=== PATIENT | male | born 1965 | race Caucasian/White ===

== ENCOUNTER 2019-07-20 11:18 | Observation (INO) | payer OTHER ==
[~2019-07-20] VITALS: Ht 185.4 cm; Wt 101.8 kg
[~2019-07-20 11:18] MED LIST: ADRENACLIC0.15 MG/0. IM; NORCO 7.5-3251 EACH PO; NORVASC5 MG PO; ONDANSETRON HCL4 M2 PO; PHENERGAN50 MG RC; PROMETHEGAN50 MG RECTAL
[2019-07-20 11:27] VITALS: BP 159/86
[2019-07-20] MEDS ORDERED: LIPITOR10 MG PO (11:33)
[2019-07-20 12:03] LABS: ABSOLUTE BASOPHILS 0.1 thou/uL (0.0-0.2); ABSOLUTE EOSINOPHILS 0.1 thou/uL (0.0-0.7); ABSOLUTE LYMPHOCYTES 1.4 thou/uL (0.8-5.3); ABSOLUTE MONOCYTES 0.5 thou/uL (0.0-1.2); ABSOLUTE NEUTROPHILS 4.9 thou/uL (1.6-8.1); EOSINOPHILS 0.8 %; HEMOGLOBIN 15.9 gm/dL (14.0-18.0); MCH 29.6 pg (26.0-34.0); MCHC 34.5 g/dL (28.0-37.0); MCV 85.9 fL (80.0-100.0); MONOCYTES 6.7 %; MPV 7.4 fl. (7.2-11.1); NUCLEATED RBCS 0 /100WBC; PLATELET COUNT* 212 thou/uL (150-400); POLYS 71.5 %; RBC 5.35 mil/uL (4.50-6.00); RDW-CV 13.2 % (10.5-14.5); WBC 6.9 thou/uL (4.0-11.0)
[2019-07-20 12:14] LABS: APTT 23.3 Seconds (25.0-31.3); INR 1.1; PROTIME 11.1 Seconds (9.20-11.50)
[2019-07-20 12:17] LABS: CALCIUM 8.8 mg/dL (8.5-10.1); POTASSIUM 3.8 mmol/L (3.5-5.1)
[2019-07-20 12:22] LABS: ALBUMIN 3.9 g/dL (3.4-5.0); TOTAL PROTEIN 7.8 g/dL (6.4-8.2)
[2019-07-20 13:02] LABS: URINE BILIRUBIN NEGATIVE (Negative); URINE BLOOD NEGATIVE (Negative); URINE CLARITY CLEAR; URINE COLOR YELLOW; URINE GLUCOSE-RANDOM 1+ (Negative); URINE KETONES NEGATIVE (Negative); URINE LEUKOCYTES-REFLEX NEGATIVE (Negative); URINE NITRITE-REFLEX NEGATIVE (Negative); URINE PROTEIN NEGATIVE (Negative); URINE SPECIFIC GRAVITY 1.015 (1.005-1.030); URINE UROBILINOGEN 0.2 E.U./dl (0.2-1.0)
--- NOTE | 2019-07-20 13:27 | NUR ---
ANGELITO Logan NOTIFIED UPON PT RETURN FROM CT.PT CONNECTED TO O2 AND PULSE OX, AND HEART MONITOR HE WAS PRIOR TO CT
[2019-07-20 14:00] VITALS: BP 134/78
[2019-07-20 14:13] LABS: INFLUENZA A ANTIGEN Negative (Negative); INFLUENZA B ANTIGEN Negative (Negative)
--- NOTE | 2019-07-20 15:27 | 2DMMODE ---
[place] [address] 2 D/M-MODE ECHOCARDIOGRAM Name: TIERNEY MAY Room: [address] MNehaRNeha#: [id number] Admission: 07/20/19 Attend Phys: Catracho Thomas, Discharge: Date of : 63 Date of Service: 07/20/19 1525 Report #: [id number] THIS REPORT FOR: cc: Manuel Turner MD, Anthony MD Blick,Sincere Saucedo MD [facility] ~ APPROVED REPORT Study performed: 07/20/2019 14:29:37 EXAM: Limited 2D, Doppler, and color-flow Echocardiogram Patient Location: In-Patient Room #: ER Status: routine BSA: 2.27 HR: 94 bpm BP: 118/68 mmHg Rhythm: NSR Other Information Study Quality: Good Indications Pulmonary Embolism Dyspnea Volumes Left Atrial Volume (Systole) LA ESV Index: 19.50 mL/m2 Tricuspid Valve RAP Estimate: 5.00 mmHg TR Peak Gr.: 28.14 mmHg RVSP: 33.00 mmHg PA Pressure: 33.00 mmHg Left Ventricle The left ventricle is normal size. There is normal LV segmental wall motion. There is normal left ventricular wall thickness. The left ventricular systolic function is normal. The left ventricular ejection fraction is within the normal range. LVEF is 55-60%. This study is not technically sufficient to allow evaluation of the LV diastolic function. Right Ventricle Right ventricle is dilated. The right ventricular systolic function [address] [address] 2 D/M-MODE ECHOCARDIOGRAM Name: LALOTIERNEYTITUS TALLEY JR Room: [address] Forrest#: [id number] Admission: 07/20/19 Attend Phys: Catracho Thomas, Discharge: Date of : 63 Date of Service: 07/20/19 1525 Report #: [id number] is normal. Atria The left atrium size is normal. Right atrium is dilated. Aortic Valve The aortic valve is normal in structure. No aortic regurgitation is present. Mitral Valve The mitral valve is normal in structure. There is no mitral valve regurgitation noted. Tricuspid Valve The tricuspid valve is normal in structure. Trace tricuspid regurgitation. Pulmonic Valve The pulmonary valve is normal in structure. Mild pulmonic regurgitation. Great Vessels The aortic root is normal in size. IVC is normal in size and collapses >50% with inspiration. Pericardium There is no pericardial effusion. <Conclusion> LVEF is 55-60%. Right ventricle is dilated. <ELECTRONICALLY SIGNED> By: Sincere Escobar MD, [facility] 07/20/19 1525 1525 1525 Sincere Escobar MD, FACC /INF
[2019-07-20 15:34] VITALS: BP 117/72
--- NOTE | 2019-07-20 16:02 | NUR ---
PT ADMITTED TO ROOM AND UNIT. BED LOW AND LOCKED, SIDE RAILS UP X3, CALL LIGHT IN REACH, TELE APPLIED. WILL CONTINUE TO ASSESS.
--- NOTE | 2019-07-20 16:45 | NUR ---
WILL HOLD SCDS R/T DVT AND ON ORAL AC.
[2019-07-20 20:00] VITALS: BP 124/79
[2019-07-21 00:26] VITALS: BP 124/74
[2019-07-21 04:25] VITALS: BP 121/83; BP 98/51
--- NOTE | 2019-07-21 04:37 | NUR ---
ASSUMED PATIENT CARE AT 1900. PATIENT ALERT AND ORIENTED TIMES FOUR. UP INDEPENDENTLY IN ROOM. NO COMPLAINTS OF PAIN OR DISCOMFORT NOTED. 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
[2019-07-21 08:00] VITALS: BP 118/80
[2019-07-21] MEDS ORDERED: ELIQUIS5 MG PO (09:43)
[2019-07-21 09:47] VITALS: BP 118/80
[2019-07-21 10:21] VITALS: BP 118/80
--- NOTE | 2019-07-21 11:01 | NUR ---
ASSUSMED CARE OF PT APPROX 0730. REASSESSMENT COMPLETED CHARTED. MEDICATIONS GIVEN CHARTED. MEDICATIONS DISCUSSED WITH PT, PT VERBALIZED UNDERSTANDING. DISCHARGE TEACHING COMPLETED WITH PT. PT VERBALIZED UNDERSTANDING. PT ESCORTED TO VEHICLE IN WHEELCHAIR BY STAFF.
== END 2019-07-21 11:03 | disposition home or self-care (01) ==
LOC: M.2W 14:04 → M.TBA-ER 14:04 → M.2W 14:04
PROVIDERS: Personal Emergency Response Attendant; ADMIT Internal Medicine
DX: I82.4Z2 Acute embolism and thrombosis of unspecified deep veins of left distal lower extremity (principal); I27.20 Pulmonary hypertension, unspecified; I10 Essential (primary) hypertension; E66.9 Obesity, unspecified; D84.1 Defects in the complement system; Z87.891 Personal history of nicotine dependence

== ENCOUNTER → 2020-03-06 | Outpatient (CLI) | payer OTHER ==
[~2020-03-06] MED LIST changes: +ELIQUIS5 MG PO; +LIPITOR10 MG PO
== END ==
LOC: M.LAB 12:28 → M.CT 13:00
PROVIDERS: ATTEND Internal Medicine
DX: I26.99 Other pulmonary embolism without acute cor pulmonale (principal); J84.10 Pulmonary fibrosis, unspecified; J98.4 Other disorders of lung